=== PATIENT | female | born 1945 | race Caucasian/White ===

== ENCOUNTER 2020-03-21 13:30 | Emergency (ER) | payer MEDICARE, OTHER ==
[2020-03-21] MEDS ORDERED: Bacitracin Oint 1 GM U/D Packet TOP ONE (14:06)
--- NOTE | 2020-03-21 14:49 | EDM.PDOC ---
ED HPI GENERAL MEDICAL PROBLEM - General Chief Complaint: Upper Extremity Injury/Pain Stated Complaint: CUT INDEX FINGER Time Seen by Provider: 03/21/20 14:01 - History of Present Illness INITIAL COMMENTS - FREE TEXT/NARRATIVE: Nany presents today for complaints of left index pain after cutting it with a sewing tool. She reports the tool was clean. She was working on making face masks. She denies any other injuries or trauma. She denies fever, chills, nausea, vomiting, change in bowel/bladder or other concerns. Tetanus up to date. - Related Data Allergies Allergy/AdvReac Type Severity Reaction Status Date / Time morphine AdvReac Anaphylactic Verified 03/21/20 13:52 Shock Home Meds: Home Meds Esomeprazole Magnesium [Nexium] 20 mg PO DAILY 03/21/20 [History] Past Medical History HEENT History: Reports: Impaired Vision Gastrointestinal History: Reports: GERD, Irritable Bowel Syndrome Genitourinary History: Reports: Other (See Below) PLASTIC CUTTER History: Reports: Musculoskeletal History: Reports: Back Pain, Chronic, Fibromyalgia, Osteoarthritis Neurological History: Reports: Migraines - Past Surgical History Head Surgeries/Procedures: Reports: None HEENT Surgical History: Reports: Cataract Surgery GI Surgical History: Reports: None Female Surgical History: Reports: Section, Hysterectomy Neurological Surgical History: Reports: Spinal Fusion Musculoskeletal Surgical History: Reports: Knee Replacement, Shoulder Replacement Other Musculoskeletal Surgeries/Procedures:: right shoulder, bilat knees Dermatological Surgical History: Reports: None Social & Family History - Tobacco Use Smoking Status *Q: Never Smoker Second Hand Smoke Exposure: No - Caffeine Use Caffeine Use: Reports: None - Recreational Drug Use Recreational Drug Use: No Review of Systems - Review of Systems Review Of Systems: See Below Constitutional: Reports: No Symptoms Eyes: Reports: No Symptoms Ears: Reports: No Symptoms Nose: Reports: No Symptoms Mouth/Throat: Reports: No Symptoms Respiratory: Reports: No Symptoms Cardiovascular: Reports: No Symptoms GI/Abdominal: Reports: No Symptoms Genitourinary: Reports: No Symptoms Musculoskeletal: Reports: No Symptoms Skin: Reports: Other (laceration left index finger, "U" shaped at tip of finger) Neurological: Reports: No Symptoms Psychiatric: Reports: No Symptoms ED EXAM, GENERAL - Physical Exam Exam: See Below Exam Limited By: No Limitations General Appearance: Alert, WD/WN, No Apparent Distress Head: Atraumatic, Normocephalic Respiratory/Chest: No Respiratory Distress, Lungs Clear, Normal Breath Sounds, No Accessory Muscle Use, Chest Non-Tender. No: Crackles, Rales, Rhonchi, Wheezing Cardiovascular: Normal Peripheral Pulses, Regular Rate, Rhythm, No Edema, No Gallop, No Murmur, No Rub Peripheral Pulses: 2+: Radial (L), Radial (R) Extremities: Normal Range of Motion, No Pedal Edema, Normal Capillary Refill, Other (pain to left index finger with "u" shaped laceration, bleeding controlled . ) Neurological: Alert, Oriented, CN II-XII Intact, Normal Cognition, Normal Gait, Normal Reflexes, No Motor/Sensory Deficits Psychiatric: Normal Affect, Normal Mood Skin Exam: Warm, Dry, Normal Color, Wound/Incision (as described above) Lymphatic: No Adenopathy ED TRAUMA EXTREMITY PROCEDURES - Laceration/Wound Repair Left Other Lac/Wound Length In cm: 2 (Left index finger tip/pad) Appearance: Subcutaneous, Clean, Other ("U" shaped) Distal NVT: Neuro & Vascular Intact, No Tendon Injury Anesthetic Type: Local Local Anesthesia - Lidocaine (Xylocaine): 2% Plain Local Anesthetic Volume: 2cc Skin Prep: Chlorhexidine (Hibiciens), Saline Exploration/Debridement/Repair: Wound Explored, In a Bloodless Field, No Foreign Material Found, Other ("U" shaped flap aligned) Closed With: Sutures Suture Size: 4-0 # of Sutures: 7 Suture Type: Nylon Sterile Dressing Applied: Other (bacitracin) Tetanus Status Addressed: Yes Complications: No Course - Vital Signs Last Recorded V/S: Last Vital Signs Temp 36.4 C 03/21/20 13:53 Pulse 80 03/21/20 13:53 Resp 13 03/21/20 13:53 BP 151/95 H 03/21/20 13:53 Pulse Ox 97 03/21/20 13:53 - Orders/Labs/Meds Meds: Medications Discontinued Medications Generic Name Dose Route Start Last Admin Trade Name Guruq PRN Reason Stop Dose Admin Bacitracin 1 dose 03/21/20 14:06 03/21/20 14:15 Bacitracin Oint 1 Gm TOP 03/21/20 14:07 1 dose ONETIME ONE Administration Lidocaine HCl 5 ml 03/21/20 14:05 03/21/20 14:15 Xylocaine-Mpf 1% INJECT 03/21/20 14:06 5 ml ONETIME ONE Administration - Re-Assessments/Exams Free Text/Narrative Re-Assessment/Exam: 03/21/20 Patient tolerated laceration repair well tolerated. Education provided on wound care, patient verbalized understanding. All her questions were answered. Departure - Departure Time of Disposition: 14:47 Disposition: Home, Self-Care 01 Condition: Good Clinical Impression: Laceration of left index finger - Discharge Information *PRESCRIPTION DRUG MONITORING PROGRAM REVIEWED*: Not Applicable *COPY OF PRESCRIPTION DRUG MONITORING REPORT IN PATIENT BRIT: Not Applicable Instructions: Laceration Care, Adult, [id number] Referrals: PCP,None [Primary Care Provider] - Forms: ED Department Discharge Additional Instructions: Keep current pressure dressing on for 30 minutes. May take off and keep light dressing on until tomorrow. Then wash with soap and water, dry twice a day. Small amount of bacitracin to the laceration twice per day. Return for suture removal in 7 to 10 days. Keep laceration clean and dry, covered when in public or at risk to become wet. Watch for signs of infection, if any occur, return to emergency room for evaluation. Sepsis Event Note (ED) - Evaluation Sepsis Screening Result: No Definite Risk - Focused Exam Vital Signs: Vital Signs Temp Pulse Resp BP Pulse Ox 03/21/20 13:53 36.4 C 80 13 151/95 H 97 03/21/20 13:50 36.4 C 80 13 151/95 H 97 - Assessment/Plan Assessment:: Laceration of left index finger Plan: Keep current pressure dressing on for 30 minutes. May take off and keep light dressing on until tomorrow. Then wash with soap and water, dry twice a day. Small amount of bacitracin to the laceration twice per day. Return for suture removal in 7 to 10 days. Keep laceration clean and dry, covered when in public or at risk to become wet. Watch for signs of infection, if any occur, return to emergency room for evaluation.
== END 2020-03-21 14:57 | disposition home or self-care (01) ==
LOC: JP.ED 13:30
DX: S61.211A Laceration without foreign body of left index finger without damage to nail, initial encounter (principal); K21.9 Gastro-esophageal reflux disease without esophagitis; Z88.5 Allergy status to narcotic agent; Z79.899 Other long term (current) drug therapy; W27.3XXA Contact with needle (sewing), initial encounter
CPT/HCPCS: 12001; 99283; J2001

== ENCOUNTER 2021-10-23 06:57 | Day surgery (SDC) | payer MEDICARE, OTHER ==
[~2021-10-23 06:57] MED LIST: Lidocaine 1% with EPINEPHrine 1:100,000 50 ML MDV ONE; Sodium Tetradecyl Sulfate 1% 20 MG/2 ML SDV ONE
[2021-10-23] MEDS ORDERED: fentaNYL 100 MCG/2 ML SDV ONE (07:21)
[2021-10-23] MEDS ORDERED: Propofol 200 MG/20 ML SDV ONE ×2 (07:21→09:06)
[2021-10-23] MEDS ORDERED: Midazolam 1 MG/ML 2 ML SDV ONE (07:21)
[2021-10-23] MEDS ORDERED: Sodium Chloride 0.9% 1,000 ML IV SCH (07:30)
[2021-10-23] MEDS ORDERED: Lidocaine 1% w/EPINEPHrine 50 ML, Sodium Bicarbonate 5 MEQ in Sodium Chloride 0.9% 950 ML INJECT ONE ×2 (08:05→08:30)
== END 2021-10-23 10:50 | disposition home or self-care (01) ==
LOC: JP.SDS 06:57
PROVIDERS: ATTEND Surgery
DX: I87.2 Venous insufficiency (chronic) (peripheral) (principal); I80.9 Phlebitis and thrombophlebitis of unspecified site
CPT/HCPCS: 76998; J1642; J2250; J2704; J3010; J3490; J7030

== ENCOUNTER 2023-01-29 19:35 | Emergency (ER) | payer MEDICARE, OTHER | END 2023-01-29 20:23 | disposition home or self-care (01) | LOC: JP.ED 19:35 | DX: G89.18 Other acute postprocedural pain (principal); Z88.5 Allergy status to narcotic agent; Z91.011 Allergy to milk products | CPT/HCPCS: 99281 ==

== ENCOUNTER 2025-02-07 13:08 | Emergency (ER) | payer MEDICARE, OTHER ==
[2025-02-07] MEDS: Diphtheria,Pertussis(Acell),Tetanus Vaccine 0.5 ML Syringe IM ONE (14:00)
[2025-02-07] MEDS: Lidocaine/Epineph/Tetracaine 3 ML Syringe TOP ONE (14:00)
== END 2025-02-07 15:29 | disposition home or self-care (01) ==
LOC: JP.ED 13:08
DX: S61.210A Laceration without foreign body of right index finger without damage to nail, initial encounter (principal); Z88.5 Allergy status to narcotic agent; Z88.8 Allergy status to other drugs, medicaments and biological substances; Z79.899 Other long term (current) drug therapy; W45.8XXA Other foreign body or object entering through skin, initial encounter; Z23 Encounter for immunization
CPT/HCPCS: 12002; 90471; 90715; 99282; A9270